=== PATIENT | female | born 1980 | race Caucasian/White ===

== ENCOUNTER 2017-02-10 19:45 | Inpatient (IN) | payer OTHER ==
[~2017-02-10] VITALS: Ht 167.6 cm; Wt 88.3 kg
[2017-02-10 21:32] VITALS: BP 113/69; PULSE 83; TEMP 98.1
[2017-02-10] MEDS ORDERED: ZYRTEC5 MG PO (22:01)
[2017-02-10] MEDS ORDERED: VALTREX 50500 MG/TAB PO (22:02)
[2017-02-10] MEDS ORDERED: COLLAGENASE 1 ML1 ML (22:03)
[2017-02-11 00:08] VITALS: BP 106/60; PULSE 84; TEMP 98.1
[2017-02-11 03:38] VITALS: BP 123/63; PULSE 76; TEMP 98.3
[2017-02-11 08:03] LABS: BASO % 0.4 % (0.0-2.0); EOS # 0.3 (0.0-0.7); EOS % 4.5 % (0-4.0); GRAN # 3.7 (1.4-6.5); GRAN % 51.2 % (42.2-75.2); HEMOGLOBIN 12.6 g/dl (12.5-16.0); LYMPH # 2.4 (1.2-3.4); LYMPH % 33.6 % (20.0-51.0); MEAN CELL VOLUME 87 fl (80.0-100.0); MEAN CORPUSCULAR HEMOGLOBIN 30 pg (27.0-31.0); MEAN CORPUSCULAR HGB CONC 34 g/dl (33.0-37.0); MEAN PLATELET VOLUME 9.3 fl (7.4-10.4); MONO # 0.7 (0.1-0.6); PLATELET COUNT 240 K/mm3 (130-400); RED BLOOD COUNT 4.22 M/mm3 (4.10-5.30); WHITE BLOOD COUNT 7.2 K/mm3 (4.8-10.8)
[2017-02-11 08:04] LABS: HEMATOCRIT 36.8 % (37.0-47.0)
[2017-02-11 08:13] LABS: CALCIUM 8.9 mg/dL (8.4-10.2); CREATININE, serum 0.73 mg/dL (0.52-1.25); POTASSIUM 3.9 mmol/L (3.4-5.0)
[2017-02-11 09:27] VITALS: BP 106/66; PULSE 82; TEMP 98.6
[2017-02-11 23:29] LABS: RHEUMATOID FACTOR-SCREEN <15 IU/mL (0-29)
[2017-02-12] MEDS ORDERED: ZANTAC 150MG T150 MG PO (10:15)
[2017-02-12] MEDS ORDERED: SOLU-MEDRO1000 MG/1 IV ×2 (10:17→12:32)
[2017-02-12] MEDS ORDERED: ULTRAM 50MG TAB50 MG PO (10:30)
[2017-02-12] MEDS ORDERED: PREDNISONE10 MG PO (12:00)
[2017-02-12 21:28] LABS: SJOGRENS SSB 7 U/mL (0-99)
[2017-02-13 10:57] LABS: LYME DISEASE ANTIBODIES Negative (Negative)
== END 2017-02-11 11:57 | disposition home or self-care (01) | DRG 103 ==
LOC: MEDICAL 19:45
PROVIDERS: Nurse Practitioner; Psychiatry & Neurology Neurology
PROC: 009U3ZX Drainage of Spinal Canal, Percutaneous Approach, Diagnostic (ICD-10-PCS; principal; 2017-02-11)
DX: G43.109 Migraine with aura, not intractable, without status migrainosus (principal); B00.9 Herpesviral infection, unspecified; Z87.891 Personal history of nicotine dependence
CPT/HCPCS: G0378; G0379; J0780; J1200; J1885; J7030

== ENCOUNTER 2017-02-11 13:28 | Observation (INO) | payer OTHER ==
[~2017-02-11] VITALS: Ht 167.6 cm; Wt 87.9 kg
[~2017-02-11 13:28] MED LIST: COLLAGENASE 1 ML1 ML; VALTREX 50500 MG/TAB PO; ZYRTEC5 MG PO
[2017-02-11 16:14] VITALS: BP 108/69; PULSE 80; TEMP 98.3
[2017-02-11 16:18] VITALS: BP 108/69; PULSE 80; TEMP 98.3
[2017-02-11 17:07] LABS: CEREBROSPINAL TUBE #4; CSF APPEARANCE CLEAR; CSF COLOR COLORLESS
[2017-02-11 17:29] LABS: CSF POLYMORPHONUCLEAR 3 % (0-6)
[2017-02-11 19:43] VITALS: BP 115/80; PULSE 91; TEMP 99
[2017-02-12 00:11] VITALS: BP 99/6; BP 99/64; PULSE 81; TEMP 99.4
[2017-02-12 03:28] VITALS: BP 105/63; PULSE 79; TEMP 98.2
[2017-02-12 07:24] VITALS: BP 110/74; PULSE 91; TEMP 98.6
[2017-02-12] MEDS ORDERED: ZANTAC 150MG T150 MG PO (10:15)
[2017-02-12] MEDS ORDERED: SOLU-MEDRO1000 MG/1 IV ×2 (10:17→12:32)
[2017-02-12] MEDS ORDERED: ULTRAM 50MG TAB50 MG PO (10:30)
[2017-02-12 11:44] VITALS: BP 117/75; PULSE 82; TEMP 98.7
[2017-02-12] MEDS ORDERED: PREDNISONE10 MG PO (12:00)
[2017-02-13 15:04] LABS: CSF OLIG BD INTERPRETATION 0 bands (<4); CSF OLIGOCLONAL BANDING 0 bands (()); SE OLIGOCLONAL BANDING 0 bands (())
== END 2017-02-12 17:41 | disposition home or self-care (01) ==
LOC: MEDICAL 13:28
PROVIDERS: Nurse Practitioner Family
DX: R51 Headache (principal); H54.7 Unspecified visual loss; R73.9 Hyperglycemia, unspecified; Z90.49 Acquired absence of other specified parts of digestive tract; Z87.891 Personal history of nicotine dependence; Z82.49 Family history of ischemic heart disease and other diseases of the circulatory system
CPT/HCPCS: G0378; G0379; J1815; J2930; J7030; J7060

== ENCOUNTER 2017-02-15 08:00 | Outpatient (RCR) | payer OTHER ==
[2017-02-13 13:38] VITALS: BP 118/69; PULSE 82; TEMP 98.8
[~2017-02-15] VITALS: Ht 167.6 cm; Wt 86.4 kg
[~2017-02-15 08:00] MED LIST changes: +PREDNISONE10 MG PO; +SOLU-MEDRO1000 MG/1 IV; +ULTRAM 50MG TAB50 MG PO; +ZANTAC 150MG T150 MG PO
[2017-02-15 08:33] VITALS: BP 120/70; PULSE 77; TEMP 98
== END 2017-02-15 09:32 | disposition home or self-care (01) ==
LOC: EUO 08:00
DX: R51 Headache (principal); H53.9 Unspecified visual disturbance; R73.9 Hyperglycemia, unspecified
CPT/HCPCS: J2930; J7060